=== PATIENT | male | born 1975 | race African-American/Black ===

== ENCOUNTER 2020-05-20 13:55 | Emergency (ER) | payer MEDICAID, OTHER ==
[~2020-05-20] VITALS: Ht 172.7 cm; Wt 90.7 kg
[2020-05-20 14:21] VITALS: BP 153/97
[2020-05-20] MEDS ORDERED: cefTRIAXone SOD 1,000 MG VL IM ONE (15:15)
[2020-05-20] MEDS ORDERED: ACETAMINOPHEN 500 MG TAB PO ONE (15:15)
== END 2020-05-20 18:25 | disposition home or self-care (01) ==
LOC: ER 13:55
DX: J02.9 Acute pharyngitis, unspecified (principal); J45.909 Unspecified asthma, uncomplicated; Z20.822 Contact with and (suspected) exposure to COVID-19
CPT/HCPCS: 36415; 87426; 96372; 99283; C9803; J0696; U0003